=== PATIENT | female | born 1940 | race Caucasian/White ===

== ENCOUNTER → 2017-04-22 | Outpatient (CLI) | payer OTHER | LOC: US 04-16 14:45 | DX: M79.604 Pain in right leg (principal); M79.605 Pain in left leg; R93.6 Abnormal findings on diagnostic imaging of limbs | CPT/HCPCS: 93925 ==

== ENCOUNTER → 2021-01-17 | Outpatient (CLI) | payer MEDICARE | LOC: RAD 08:48 | DX: M25.571 Pain in right ankle and joints of right foot (principal); M79.671 Pain in right foot; M25.551 Pain in right hip | CPT/HCPCS: 73502; 73610; 73630 ==

== ENCOUNTER 2021-03-23 16:35 | Emergency (ER) | payer MEDICARE | END 2021-03-23 17:50 | disposition home or self-care (01) | LOC: ER1 16:35 | DX: S52.91XA Unspecified fracture of right forearm, initial encounter for closed fracture (principal); I10 Essential (primary) hypertension; I25.2 Old myocardial infarction; W18.30XA Fall on same level, unspecified, initial encounter; Y92.009 Unspecified place in unspecified non-institutional (private) residence as the place of occurrence of the external cause | CPT/HCPCS: 29125; 99283 ==

== ENCOUNTER → 2021-03-23 | Outpatient (CLI) | payer MEDICARE | LOC: KOH-I 12:43 | DX: M79.631 Pain in right forearm (principal); M79.89 Other specified soft tissue disorders | CPT/HCPCS: 73090; 73110; 73130 ==

== ENCOUNTER 2021-08-29 16:28 | Observation (INO) | payer MEDICARE ==
[~2021-08-29] VITALS: Ht 152.4 cm; Wt 74.8 kg
[2021-08-29 17:10] LABS: HEMOGLOBIN 9.2 gm/dl (12.3-15.3); RED BLOOD COUNT 3.58 M/UL (4.00-5.10); WHITE BLOOD COUNT 13.4 K/UL (4.5-11.0)
[2021-08-29 18:02] LABS: BUN/CREATININE RATIO 14 (0-10)
[2021-08-29] MEDS ORDERED: NITROGLYCERIN0.4 MG SL (23:42)
[2021-08-29] MEDS ORDERED: COZAAR 50MG TAB50 MG PO (23:43)
[2021-08-29] MEDS ORDERED: AMLODIPINE BESY10 MG PO (23:43)
[2021-08-29] MEDS ORDERED: ISOSORBIDE MON120 MG PO (23:44)
[2021-08-29] MEDS ORDERED: FLUOXETINE HCL40 MG PO (23:44)
[2021-08-29] MEDS ORDERED: CLOPIDOGREL75 MG PO (23:44)
[2021-08-29] MEDS ORDERED: LANTUS SOL100 UNIT/1 SQ ×2 (23:45)
[2021-08-29] MEDS ORDERED: LOPRESSOR 25 MG25 MG PO (23:46)
--- NOTE | 2021-08-30 01:13 | NUR ---
PATIENT SETTLED INTO HER ROOM COMFORTABLY, DAUGHTER IS AT THE BEDSIDE WILL CONTINUE TO MONITOR.
[2021-08-30] MEDS ORDERED: ASPIRIN EC81 MG PO (08:14)
[2021-08-30] MEDS ORDERED: PROTONIX 40 MG40 M1 PO (08:14)
[2021-08-30] MEDS ORDERED: LOPRESSOR 25 MG25 MG PO (08:14)
[2021-08-30] MEDS ORDERED: ATORVASTATIN CA20 MG PO (08:14)
--- NOTE | 2021-08-30 08:55 | NUR ---
PATIENT REFUSED ALL ORAL AND INSULIM MEDICATIONS
== END 2021-08-30 11:05 | disposition home or self-care (01) ==
LOC: ER1 16:28 → CDU 18:51 → M/S 18:51
PROVIDERS: Nurse Practitioner; ADMIT Internal Medicine
DX: I44.0 Atrioventricular block, first degree (principal); I25.10 Atherosclerotic heart disease of native coronary artery without angina pectoris; R07.89 Other chest pain; E11.22 Type 2 diabetes mellitus with diabetic chronic kidney disease; I12.9 Hypertensive chronic kidney disease with stage 1 through stage 4 chronic kidney disease, or unspecified chronic kidney disease; N18.30 Chronic kidney disease, stage 3 unspecified; R06.02 Shortness of breath; Z95.5 Presence of coronary angioplasty implant and graft; Z79.02 Long term (current) use of antithrombotics/antiplatelets; Z79.82 Long term (current) use of aspirin; Z79.4 Long term (current) use of insulin; Z20.822 Contact with and (suspected) exposure to COVID-19
CPT/HCPCS: 36415; 71045; 80048; 80053; 81001; 82550; 82553; 82962; 83605; 83874; 83880; 84439; 84443; 84484; 85025; 85610; 93005; 96374; 99285; G0378; J0696; U0002

== ENCOUNTER → 2021-09-27 | Outpatient (CLI) | payer MEDICARE ==
[~2021-09-27] MED LIST: AMLODIPINE BESY10 MG PO; ASPIRIN EC81 MG PO; ATORVASTATIN CA20 MG PO; CLOPIDOGREL75 MG PO; COZAAR 50MG TAB50 MG PO; FLUOXETINE HCL40 MG PO; ISOSORBIDE MON120 MG PO; LANTUS SOL100 UNIT/1 SQ; LOPRESSOR 25 MG25 MG PO; NITROGLYCERIN0.4 MG SL; PROTONIX 40 MG40 M1 PO
== END ==
LOC: US 09:36
DX: N18.32 Chronic kidney disease, stage 3b (principal)

== ENCOUNTER 2021-10-26 13:08 | Emergency (ER) | payer MEDICARE ==
[2021-10-26 15:48] LABS: HEMOGLOBIN 7.5 gm/dl (12.3-15.3); RED BLOOD COUNT 3.34 M/UL (4.00-5.10); WHITE BLOOD COUNT 18.6 K/UL (4.5-11.0)
[2021-10-26] MEDS ORDERED: FERROUS SULFAT325 M2 PO (18:35)
== END 2021-10-26 18:44 | disposition home or self-care (01) ==
LOC: ER1 13:08
PROVIDERS: Physician Assistant Medical
DX: D64.9 Anemia, unspecified (principal); D72.829 Elevated white blood cell count, unspecified; I12.9 Hypertensive chronic kidney disease with stage 1 through stage 4 chronic kidney disease, or unspecified chronic kidney disease; N18.9 Chronic kidney disease, unspecified; E11.22 Type 2 diabetes mellitus with diabetic chronic kidney disease; E11.51 Type 2 diabetes mellitus with diabetic peripheral angiopathy without gangrene; Z79.82 Long term (current) use of aspirin; Z79.02 Long term (current) use of antithrombotics/antiplatelets
CPT/HCPCS: 80053; 85025; 85610; 99283

== ENCOUNTER 2022-07-17 15:36 | Emergency (ER) | payer MEDICARE ==
[~2022-07-17 15:36] MED LIST changes: +FERROUS SULFAT325 M2 PO
[2022-07-17 16:37] LABS: HEMOGLOBIN 7.6 gm/dl (12.3-15.3); RED BLOOD COUNT 3.06 M/UL (4.00-5.10); WHITE BLOOD COUNT 11.4 K/UL (4.5-11.0)
== END 2022-07-17 23:26 | disposition home or self-care (01) ==
LOC: ER1 15:36
PROVIDERS: Physician Assistant Medical
DX: D64.9 Anemia, unspecified (principal); R40.2410 Glasgow coma scale score 13-15, unspecified time; Z95.5 Presence of coronary angioplasty implant and graft
CPT/HCPCS: 36430; 80053; 85025; 85610; 86850; 86900; 86901; 86920; 99283; P9016